=== PATIENT | female | born 1950 | race Caucasian/White ===

== ENCOUNTER 2020-03-06 23:11 | Emergency (ER) | payer MEDICARE, OTHER ==
[~2020-03-06] VITALS: Ht 162.6 cm; Wt 76.2 kg
[2020-03-06] MEDS ORDERED: REQUIP 0.25 M0.25 MG PO (23:28)
[2020-03-06] MEDS ORDERED: KEPPRA XR750 MG PO (23:28)
[2020-03-06] MEDS ORDERED: CYCLOBENZAPRINE5 MG PO (23:29)
[2020-03-06] MEDS ORDERED: PLAVIX 75 MG TA75 MG PO (23:29)
[2020-03-06] MEDS ORDERED: BYSTOLIC10 MG PO (23:30)
[2020-03-06] MEDS ORDERED: MELOXICAM15 MG PO (23:30)
[2020-03-06] MEDS ORDERED: HYDROXYZINE HCL10 M2 PO (23:31)
[2020-03-06] MEDS ORDERED: ARNUITY ELLIPT50 MCG INH (23:32)
[2020-03-06] MEDS ORDERED: ESCITALOPRA5 MG/5 ML PO (23:32)
[2020-03-06] MEDS ORDERED: SYMBICORT160 MCG/4. INH (23:33)
[2020-03-06 23:51] LABS: HEMATOCRIT 40.6 % (37.0-47.0); HEMOGLOBIN 13.2 gm/dL (12.0-15.0); MCH 27.7 pg (26.0-34.0); MCHC 32.6 g/dL (28.0-37.0); MCV 84.9 fL (80.0-100.0); MPV 7.7 fl. (7.2-11.1); RBC 4.78 mil/uL (4.20-5.00); RDW-CV 14.2 % (10.5-14.5); WBC 5.5 thou/uL (4.0-11.0)
[2020-03-06 23:55] LABS: CALCIUM 8.8 mg/dL (8.5-10.1); CREATININE 0.8 mg/dL (0.6-1.3); POTASSIUM 3.5 mmol/L (3.5-5.1)
[2020-03-07 01:30] VITALS: BP 163/72
--- NOTE | 2020-03-07 10:19 | EKG ---
[place] [address] ELECTROCARDIOGRAM REPORT Name: JOAN ORTIZ Room: [facility]#: [id number] Admission: 03/06/20 Attend Phys: Discharge: 03/07/20 Date of : 52 Date of Service: 03/06/20 2324 Report #: [id number] THIS REPORT FOR: //name// [facility] ED Test Date: 2020-03-06 Test Time: 23:24:06 Pat Name: JOAN ORTIZ Department: Room: Gender: F Technical Sales Manager: TRIPP : 1950 Requested By: Eleazar Gavin Order Number: [id number] MD: Rufus Pollock Measurements Intervals [place] Rate: 63 P: 38 NV: 163 QRS: 10 QRSD: 90 T: 15 QT: 414 QTc: 424 Interpretive Statements Sinus rhythm Probable left atrial enlargement Borderline T wave abnormalities No previous ECG available for comparison Electronically Signed On 03-07-2020 10:19:30 FLOORING HELPER by Rufus Pollock [email or web address] <ELECTRONICALLY SIGNED> By: Rufus Pollock MD, [facility] 03/07/20 1019 [id number] [id number] Rufus Pollock MD, [facility] /EPI
== END 2020-03-07 01:32 | disposition home or self-care (01) ==
LOC: M.ERS 23:11
PROVIDERS: Emergency Medicine Emergency Medical Services
DX: R51.9 Headache, unspecified (principal); I10 Essential (primary) hypertension; J45.909 Unspecified asthma, uncomplicated; Z88.0 Allergy status to penicillin

== ENCOUNTER 2020-03-09 15:50 | Inpatient (IN) | payer MEDICARE, OTHER ==
[~2020-03-09] VITALS: Ht 162.6 cm; Wt 79.8 kg
[~2020-03-09 15:50] MED LIST: ARNUITY ELLIPT50 MCG INH; BYSTOLIC10 MG PO; CYCLOBENZAPRINE5 MG PO; ESCITALOPRA5 MG/5 ML PO; HYDROXYZINE HCL10 M2 PO; KEPPRA750 MG PO; MELOXICAM15 MG PO; PLAVIX 75 MG TA75 MG PO; REQUIP 0.25 M0.25 MG PO; SYMBICORT160 MCG/4. INH
[2020-03-09 15:58] VITALS: BP 137/77
[2020-03-09] MEDS ORDERED: IRBESARTAN-HCT1 EAC1 PO (16:06)
[2020-03-09 19:00] LABS: ABSOLUTE EOSINOPHILS 0.2 thou/uL (0.0-0.7); ABSOLUTE LYMPHOCYTES 0.9 thou/uL (0.8-5.3); ABSOLUTE MONOCYTES 0.5 thou/uL (0.0-1.2); ABSOLUTE NEUTROPHILS 7.4 thou/uL (1.6-8.1); BASOPHILS 0.4 %; EOSINOPHILS 1.7 %; HEMATOCRIT 45.6 % (37.0-47.0); MCH 28.4 pg (26.0-34.0); MCHC 33.6 g/dL (28.0-37.0); MCV 84.5 fL (80.0-100.0); MONOCYTES 5.2 %; MPV 7.5 fl. (7.2-11.1); NUCLEATED RBCS 0 /100WBC; PLATELET COUNT* 248 thou/uL (150-400); POLYS 82.7 %; RDW-CV 14.4 % (10.5-14.5)
[2020-03-09 19:01] LABS: HEMOGLOBIN 15.3 gm/dL (12.0-15.0)
[2020-03-09 19:09] LABS: CALCIUM 10.1 mg/dL (8.5-10.1); CREATININE 0.8 mg/dL (0.6-1.3); POTASSIUM 3.7 mmol/L (3.5-5.1)
[2020-03-09 19:11] LABS: APTT 23.1 Seconds (25.0-31.3); PROTIME 10.2 Seconds (9.20-11.50)
[2020-03-09 19:20] LABS: ALBUMIN 4.3 g/dL (3.4-5.0); TOTAL BILIRUBIN 0.7 mg/dL (<0.1-1.0); TOTAL PROTEIN 8.7 g/dL (6.4-8.2)
[2020-03-09 22:16] LABS: INFLUENZA A ANTIGEN Negative (Negative); INFLUENZA B ANTIGEN Negative (Negative)
[2020-03-10] VITALS (10 sets, daily range): BP systolic 132–159; BP diastolic 56–78
--- NOTE | 2020-03-10 09:00 | NUR ---
ASSUMED CARE OF PT IN THE ED. DENIES PAIN OR DIZZINESS. NSR ON MONITOR.ASSESSMENT COMPLETE. AWAITING MRI AND NEURO CONSULT THEN POSSIBLE DC
[2020-03-10 09:03] LABS: CALCIUM 8.9 mg/dL (8.5-10.1); CREATININE 0.8 mg/dL (0.6-1.3); POTASSIUM 3.3 mmol/L (3.5-5.1)
[2020-03-10 09:06] LABS: PHOSPHORUS* 3.8 mg/dL (2.5-4.9)
[2020-03-10] MEDS ORDERED: LEXAPRO 10 MG T10 M1 PO (09:21)
--- NOTE | 2020-03-10 09:51 | EKG ---
[place] [address] ELECTROCARDIOGRAM REPORT Name: JOAN ORTIZ Room: [address]#: [id number] Admission: 03/09/20 Attend Phys: Nicolás Sky, Discharge: Date of : 52 Date of Service: 03/09/20 1612 Report #: [id number] THIS REPORT FOR: //name// [facility] ED Test Date: 2020-03-09 Test Time: 16:12:08 Pat Name: JOAN ORTIZ Department: Room: [facility] Gender: F Design Assistant: TDS : 1950 Requested By: Huong Kinney Order Number: [id number] MD: Rufus Pollock Measurements Intervals [place] Rate: 61 P: -2 OR: 156 QRS: -8 QRSD: 80 T: 3 QT: 443 QTc: 447 Interpretive Statements Sinus rhythm Left ventricular hypertrophy poor r wave progression Compared to ECG 03/06/2020 23:24:06 Left ventricular hypertrophy now present Electronically Signed On 03-10-2020 9:50:58 CREATIVE MANAGER by Rufus Pollock [email or web address] <ELECTRONICALLY SIGNED> By: Rufus Pollock MD, FAC 03/10/20 0950 161 161 Rufus Pollock MD, FAC /EPI
--- NOTE | 2020-03-10 12:13 | 2DMMODE ---
[place] [address] 2 D/M-MODE ECHOCARDIOGRAM Name: JOAN ORTIZ Bucky Room: [address] Adeel#: [id number] Admission: 03/09/20 Attend Phys: Nicolás Sky, Discharge: Date of : 52 Date of Service: 03/10/20 1213 Report #: [id number] THIS REPORT FOR: cc: FAM - No family physician/PCP FAM - No family physician/PCP Kali Bejarano MD [facility] ~ APPROVED REPORT Study performed: 03/10/2020 10:00:24 EXAM: Comprehensive 2D, Doppler, and color-flow Echocardiogram Patient Location: Bedside BSA: 1.82 HR: 56 bpm BP: 143/65 mmHg Other Information Study Quality: Adequate Indications Syncope Echo Enhancing Agent Indication: Rule out Shunt Agent(s) / Amount(s) Used: Agitated Saline cc 2D Dimensions IVSd: 10.98 (7-11mm) LVOT Diam: 19.56 (18-24mm) LVDd: 40.01 mm PWd: 9.71 (7-11mm) Ascending Ao: 32.44 (22-36mm) LVDs: 27.66 (25-40mm) Aortic Root: 27.39 mm Volumes Left Atrial Volume (Systole) LA ESV Index: 20.70 mL/m2 Aortic Valve AoV Peak Barney.: 1.45 m/s AO Peak Gr.: 8.44 mmHg LVOT Max P.73 mmHg AO Mean Gr.: 4.72 mmHg LVOT Mean P.88 mmHg LVOT Max V: 0.97 m/s AO V2 VTI: 29.82 cm LVOT Mean V: 0.63 m/[place] [address] 2 D/M-MODE ECHOCARDIOGRAM Name: JOAN ORTIZ Room: [address] M.RLeonela#: [id number] Admission: 03/09/20 Attend Phys: Nicolás Sky, Discharge: Date of : 52 Date of Service: 03/10/20 1213 Report #: [id number] RONY (VTI): 2.10 cm2 LVOT V1 VTI: 20.86 cm Mitral Valve E/A Ratio: 0.58 MV Decel. Time: 203.05 ms MV E Max Barney.: 0.59 m/s MV PHT: 58.88 ms MVA (PHT): 3.74 cm2 TDI E/Lateral E': 7.38 E/Medial E': 7.38 Medial E' Barney.: 0.08 m/s Lateral E' Barney.: 0.08 m/s Pulmonary Valve PV Peak Barney.: 0.81 m/s PV Peak Gr.: 2.65 mmHg Tricuspid Valve RAP Estimate: 5.00 mmHg TR Peak Gr.: 25.85 mmHg RVSP: 30.85 mmHg PA Pressure: 30.85 mmHg Left Ventricle The left ventricle is normal size. There is normal LV segmental wall motion. There is normal left ventricular wall thickness. Left ventricular systolic function is normal. LVEF is 60-65%. Grade I - abnormal relaxation pattern. Right Ventricle The right ventricle is normal size. The right ventricular systolic function is normal. Atria The left atrium size is normal. Interatrial septum not well visualized. Injection of bubbles documented no interatrial shunt. The right atrium size is normal. Aortic Valve Aortic valve is calcified. Aortic valve leaflets are moderately thickened. No aortic regurgitation is present. There is no aortic valvular stenosis. Mitral Valve The mitral valve is normal in structure. Trace mitral regurgitation. No evidence of mitral [place] [address] 2 D/M-MODE ECHOCARDIOGRAM Name: JOAN ORTIZ Room: [address] M..#: [id number] Admission: 03/09/20 Attend Phys: Nicolás Sky, Discharge: Date of : 52 Date of Service: 03/10/20 1213 Report #: [id number] Tricuspid Valve The tricuspid valve is normal in structure. Trace tricuspid regurgitation. Pulmonic Valve The pulmonary valve is normal in structure. Trace pulmonic regurgitation. Great Vessels The aortic root is normal in size. IVC is not visualized. Pericardium There is no pericardial effusion. <Conclusion> The left ventricle is normal size. There is normal left ventricular wall thickness. Left ventricular systolic function is normal. LVEF is 60-65%. Grade I - abnormal relaxation pattern. Interatrial septum not well visualized. Injection of bubbles documented no interatrial shunt. Aortic valve is calcified. Aortic valve leaflets are moderately thickened. Trace mitral regurgitation. Trace tricuspid regurgitation. <ELECTRONICALLY SIGNED> By: Kali Bejarano MD, FACC 03/10/20 1213 12 12 Kali Bejarano MD, FACC /INF
[2020-03-10 14:22] LABS: CHOLESTEROL 264 mg/dL (<200); HDL CHOLESTEROL 47 mg/dL (>40); LDL CHOLESTEROL 185 mg/dL (<100); SERUM ASSESSMENT Clear; TC:HDL 5.6 Ratio (Not establshd); TRIGLYCERIDE 161 mg/dL (<150); VLDL 32 mg/dL (<40)
--- NOTE | 2020-03-10 19:48 | NUR ---
pt admitted to room 208 from er. pt settled in room by rafaela rn. vital signs have been documented. report to quality assurance intern rn. quality assurance intern will be responsible for admission of patient.
[2020-03-11] VITALS (7 sets, daily range): BP systolic 118–172; BP diastolic 70–91
--- NOTE | 2020-03-11 05:51 | NUR ---
PT A&O X4, ON RA. MEDS GIVEN PER EMAR. UP WITH STANDBY ASSIST. SR ON THE MONITOR. NO CHANGES ON NIH. TYLENOL GIVEN FOR HEADACHE PER PT REQUEST. IVF INFUISING ORDERED. CALL LIGHT WITHIN REACH. HOURLY ROUNDINGS MADE. WILL CONTINUE TO MONITOR.
[2020-03-11 09:59] LABS: CALCIUM 9.2 mg/dL (8.5-10.1); CREATININE 0.7 mg/dL (0.6-1.3); POTASSIUM 3.7 mmol/L (3.5-5.1)
--- NOTE | 2020-03-11 12:56 | NUR ---
Cardiac Rehab Stroke patient education. Educated receptive patient on signs and symptoms of CVA, when to call 911, personal risk factor reduction, importance of taking meds and seeing doctor. Questions answered to patient's satisfaction.
--- NOTE | 2020-03-11 13:19 | NUR ---
Pt is A&O. Resides at home with her and dtr. Pt and recently moved here from [place]. Pt normally independent and active.No DME. No hx of HH or SNF. Cardiology to arrange 30 day event monitor at dc. Pt has a new PCP appt scheduled for 03/24 at 2:10pm with Dr Tessy Li, VINNY instructed Pt to inform Dr Li office to request a copy of the 30 day monitor report from cardiology. Anticipate dc tomorrow, neuro following.
--- NOTE | 2020-03-11 19:59 | NUR ---
pt has remained alert, oriented x 4 this shift. nih stroke scale = 0. pt seen by stroke rn this shift. it is recommended that pt be on statins to decrease further stroke risk. message sent to dr moncada at [address]7. dr chopra was updated on above. at 1900 pt resting quietly in her room. report to warehouse shift supervisor
[2020-03-11 23:06] LABS: GLYCOHEMOGLOBIN (HGB A1C) 5.5 % (4.8-5.6)
[2020-03-12] VITALS: BP 148/76
[2020-03-12 04:00] VITALS: BP 130/79
--- NOTE | 2020-03-12 06:37 | NUR ---
PT CARE ASSUMED AT 1930. SAT MAINTAINED IN RA. ALERT AND ORIENTED X4. C/O PAIN, MEDICATION GIVEN PER EMAR. CALL LIGHT WITHIN REACH AND BED IN LOW POSITION. HOURY ROUNDING DONE FOR PT SAFETY.
[2020-03-12] MEDS ORDERED: LIPITOR40 MG PO (09:29)
[2020-03-12] MEDS ORDERED: ADULT LOW DOSE81 MG PO (09:29)
[2020-03-12 12:04] VITALS: BP 140/75
[2020-03-12 13:52] VITALS: BP 140/75
--- NOTE | 2020-03-13 12:47 | CON ---
[address] [address] CONSULTATION Name: JOAN ORTIZ Room: [address] IN .R.#: [id number] Admission: 03/10/20 Attend Phys: Nicolás Sky MD Discharge: 03/12/20 Date of : 52 Report #: [id number] THIS REPORT FOR: //name// cc: SERGIO - No family physician/PCP SERGIO - No family physician/PCP ~ DATE OF SERVICE: 03/10/2020 HISTORY OF PRESENT ILLNESS: This is a 69-year-old female patient which has a pretty complicated history. Neurology consultation was requested for evaluation of headache as well as an episode of syncope which this patient had, but the history of present illness is pretty complicated. She indicated that she started having headache on Saturday. She had some visual blurring along with it, but she is not specific what it was. She was brought to Emergency Room and she was seen there and she thought it was a sinus headache. That note was reviewed. She had prior history of migraine headaches. She says her blood pressure usually runs okay, but it has been running high recently. The things became gradually worse for her. Her headache became worse. Her vision according to her, became worse, but she is nonspecific about the visual symptoms. Then on the day of admission, she was lightheaded and passed out. She was out for a couple of minutes and then started having right frontal headache. She was worked up in the Emergency Room. They did a CT angiogram of the head and neck there, which was unremarkable and they also ordered an MRI, which has since been done. They also did a CT scan of the C-spine, which demonstrated cervical spondylosis, but there was no fracture there. The patient says her headache may be somewhat better, but she continued to complain of multiple symptoms. REVIEW OF SYSTEMS: Complicated. She said she had a head trauma in 2014. She said she was at a place and something fell on her head. She lost consciousness for a few minutes. Then, she started having spells of syncope and passing out. They were not certain about the diagnosis. It looks like they did a prolonged EEG or a video monitored EEG on her. She saw multiple physicians. One of them put this patient on Keppra. Then, another physician increased it to 750 mg p.o. b.i.d. The best I can tell the diagnosis of seizure was not fully established and they did it on a presumptive basis. She also has somewhat unusual history. She said she had injury to her ankle. They prescribed her Plavix. That is somewhat of an unusual history. She also describes head trauma, but head trauma was associated with loss of consciousness only for a few minutes and she was diagnosed with a concussion at that time. It looks like she had numerous workup done in [place] and another neurologist and her primary care in [place]. I do not have the access to any of the workup. We need to get that, but she does state that most of the time, her blood pressure stays pretty good and this is very unusual blood pressure for her. This was her relevant 14-point review of system. PAST MEDICAL HISTORY: Positive for spells, looks like she had a pretty [facility] [address] [place] [address] CONSULTATION Name: JOAN ORTIZ Room: [address] [place] M.R.#: [id number] Admission: 03/10/20 Attend Phys: Nicolás Sky MD Discharge: 03/12/20 Date of : 52 Report #: [id number] extensive workup for these spells and I do not think any cause was established. She also has a history of migraine. FAMILY HISTORY: Unremarkable. SOCIAL HISTORY: Presently, she is living with her daughter and she does not smoke or drink alcohol. PHYSICAL EXAMINATION: Indicates she is alert. She is responsive. She is able to follow simple and complex command. Her speech looks intact. Cranial nerve examination 2-12 demonstrate rather dense left hemianopsia. I do not see any other facial palsy. She does appear to have a symmetrical strength, sensation, reflexes and tone. There is no meningeal sign in this patient. There does not appear to be any cerebellar sign. Cardiorespiratory examinations appear unremarkable. This patient has a prior history because she said she has been monitored for a long time and no arrhythmia has been found. When she came in, her blood pressure was 205/94 and the last blood pressure is 137/67. Records were reviewed. Her MRI demonstrated a finding consistent with right occipital lobe stroke. I reviewed those films and those strokes are small, but they are multifocal. They did not look like PRES syndrome. IMPRESSION: 1. 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 The duration of this is not clear. She had some visual disturbances starting on Saturday, but I do not know for sure because the symptoms were nonspecific. Many times, people with hemianopsia can have nonspecific symptoms in the beginning. I do not see any note to that effect in the patient's chart, but I do not know how aggressively the presence of hemianopsia was looked at. From her history, it looks unlikely that it started since yesterday and my feeling is that the patient was having some symptoms starting on Saturday and it is possible that she had multiple emboli in those locations and symptoms came over a period of time, starting on Saturday. She was on Plavix and the stroke happened in spite of being on Plavix. This patient's MRI demonstrates restricted diffusion, but at the same time these strokes are also showing up on T2 weighted images indicating they are probably subacute because they are already showing up on T2 weighted images and will more correlate that probably the symptoms started last Saturday, but from history, it is very difficult to tell. As far as treatment is concerned, not much can be done except supportive treatment. She should be on a combination of aspirin and Plavix. Her cholesterol will be checked and she most likely will go on statin depending upon her lipid profile. She needs to be extensively checked for any signs of atrial fibrillation as an outpatient. Just to be safe, I will go ahead and give her some fluid and increase her blood pressure to some extent at [place] [address] CONSULTATION Name: JOAN ORTIZ Room: [address]#: [id number] Admission: 03/10/20 Attend Phys: Nicolás Sky MD Discharge: 03/12/20 Date of : 52 Report #: [id number] 2. This patient has multiple other issues. It is possible they were non-epileptiform event from the description. We will try to get the record from [place]. Time of onset is not clear in this patient as to when these symptoms occurred. There is no clot there. An NIH score done yesterday says no visual loss, but I am not sure that is accurate because the patient is complaining of visual problems since Saturday and even if it is accurate, I am not sure what can be done because I do not know what time it came. Main thing is increasing her blood pressure somewhat and doing an extensive workup to look for atrial fibrillation, I do not think any intervention can be done because she is not a TPA candidate because I do not know the exact timing of the onset of the symptoms and symptom presently appeared to be localized to the visual field deficit only, although that can be problem in the long run especially with the driving. Her NIH stroke scale is only positive for left hemianopsia at the moment. I talked to the patient in detail and I think she should stay here. We will give her some fluids. We will do some other workup as an outpatient. We will arrange workup to look for any source of atrial fibrillation. Thank you very much for this referral. More than 50 minutes of time was spent taking care of this patient today and majority was spent counseling and coordinating. <ELECTRONICALLY SIGNED> By: Seun Brito MD 03/13/20 1247 [id number] Brito MD /nt
== END 2020-03-12 14:36 | disposition home or self-care (01) | DRG 66 ==
LOC: M.ERS 15:50 → M.TBA-ER 21:47 → M.2W 03-10 14:08 → M.TBA-ER 03-10 14:08 → M.2W 03-10 18:17
PROVIDERS: Nurse Practitioner Family; Psychiatry & Neurology Neuromuscular Medicine; ADMIT Internal Medicine; ATTEND Internal Medicine
DX: I63.89 Other cerebral infarction (principal); J45.909 Unspecified asthma, uncomplicated; E87.6 Hypokalemia; G40.909 Epilepsy, unspecified, not intractable, without status epilepticus; G43.909 Migraine, unspecified, not intractable, without status migrainosus; H53.47 Heteronymous bilateral field defects; I48.91 Unspecified atrial fibrillation; I10 Essential (primary) hypertension; Z20.828 Contact with and (suspected) exposure to other viral communicable diseases; Z87.820 Personal history of traumatic brain injury; Z79.899 Other long term (current) drug therapy; Z88.0 Allergy status to penicillin; Z23 Encounter for immunization